=== PATIENT | female | born 1995 | race Caucasian/White ===

== ENCOUNTER 2018-05-04 15:00 | Day surgery (SDC) | payer OTHER ==
[~2018-05-04] VITALS: Ht 175.3 cm; Wt 82.6 kg
[2018-05-04] MEDS ORDERED: NORMOSOL R SOLN(*) 1000 ML BAG 1,000 ML IV PRN ×2 (15:09→15:10)
[2018-05-04] MEDS ORDERED: LIDOCAINE/SOD BICARB 8.4% SYR ID ONE (15:10)
[2018-05-04] MEDS ORDERED: cefOXitin/DEX(*) 2GM/50ML PREM 50 ML IVPB ONE (15:10)
[2018-05-04] MEDS ORDERED: MIDAZOLAM 2 MG/2 ML VIAL IVP PRN (15:10)
[2018-05-04] MEDS ORDERED: FAMOTIDINE 20 MG TAB PO ONE (15:10)
[2018-05-04] MEDS ORDERED: METOCLOPRAMIDE 10 MG/2 ML SDV ONE (15:26)
[2018-05-04] MEDS ORDERED: PROPOFOL EMUL(*) 10MG/ML 20 ML 20 ML ONE (15:26)
[2018-05-04] MEDS ORDERED: ONDANSETRON 4 MG/2 ML VIAL ONE (15:26)
[2018-05-04] MEDS ORDERED: LIDOCAINE MPF 1% 5 ML VIAL ONE (15:26)
[2018-05-04] MEDS ORDERED: DEXAMETHASONE SOD 4 MG/ML VIAL ONE (15:27)
[2018-05-04] MEDS ORDERED: fentaNYL CITR 100 MCG/2 ML AMP ONE (15:27)
[2018-05-04 15:56] VITALS: BP 95/79
[2018-05-04] MEDS ORDERED: ROCURONIUM BROM 10 MG/ML 10 ML ONE (17:25)
[2018-05-04] MEDS ORDERED: BUPIV/EPI 0.25% 1:200,000 50ML INFIL ONE (17:27)
[2018-05-04] MEDS ORDERED: SUGAMMADEX SOD 200 MG/2 ML SDV ONE (18:22)
[2018-05-04] MEDS ORDERED: KETOROLAC 30 MG/ML VIAL ONE (18:26)
[2018-05-04] MEDS ORDERED: SENN8.6T35 PO (18:51)
[2018-05-04] MEDS ORDERED: DOCU-416 PO (18:51)
[2018-05-04] MEDS ORDERED: HYDR-385 PO (18:51)
--- NOTE | 2018-05-04 18:54 | Short(Outpt) Discharge Summary ---
Discharge Summary Departure Discharge to: Home, Self Care Discharge Instructions Home Meds Active Scripts Sennosides (SENNA) 8.6 Mg Tablet, 8.6 MG PO BID for con for 7 Days, #14 TAB Prov:LINETTE PINEDA MD 05/04/18 Docusate Sodium (COLACE) 100 Mg Capsule, 100 MG PO BID PRN for CONSTIPATION for 7 Days, #14 CAPSULE Prov:LINETTE PINEDA MD 05/04/18 Hydrocodone Bit/Acetaminophen (HYDROCODON-ACETAMINOPHEN 5-325) 1 Each Tablet, 1 EACH PO Q6H PRN for PAIN for 5 Days, #20 TAB Prov:LINETTE PINEDA MD 05/04/18 Diet: Regular Activity: As Tolerated, No Heavy Lifting Special Instructions: You may shower on 05/05/18, please do not submerge in water. Please do not scrub incision and pat incisions dry. Please call the office for fever >100.1F more than 24 hours after your operation, for new or spreading redness or increasing pain. Please to not lift >20 lbs for 4 weeks from the date of your operation. LINETTE PINEDA MD May 04, 2018 18:54
--- NOTE | 2018-05-04 18:59 | Post Operative Note ---
Operative Note - ENT Physicians Surgeon: Linette Pineda M.D. Anesthesia: General endotracheal Diagnosis Pre-Op Diagnosis: Acute appendicitis with localized peritonitis Post-Op Diagnosis: Acute uncomplicated appendicitis Procedure Findings: Appendix with injection and dilation. No evidence of mural necrosis, perforation or purulent discharge. Procedure(s): Laparoscopic appendectomy Description of procedure: After obtaining informed consent, the patient was brought to the operating suite and laid in a supine position on the table. Appropriate lines and monitors were placed. The patient was secured to the operating room table with attention paid to adequate padding of bony prominences. Preoperative antibiotics were administered. The patient was then smoothly induced with a general anesthetic and intubated via an orotracheal route. The abdomen was then prepped and draped in the usual sterile fashion. Prior to the formal start of the procedure a preoperative pause was conducted in which the patient's identity was confirmed with two separate identifiers, the planned procedure, safety measures and preoperative antibiotics were discussed. The operation was then begun by making a curvilinear incision in the infraumbilical space. The incision was deepened into the subcutaneous tissues sharply. The subcutaneous tissues were bluntly dissected down to the anterior fascia. This was then sharply incised and the peritoneum was entered under direct vision using Casie technique. Interrupted 0 Vicryl sutures were placed in the incision and a 12 mm trocar was inserted. The abdomen was then insufflated to a steady pressure of 15 mmHg and a laparoscope was introduced. The abdomen was inspected with the findings noted above. Additional 5mm trocars were then placed under direct vision in a suprapubic and left lower quadrant location. The patient was placed head down, the bowel was swept cephalad and the appendix was elevated off the surrounding small bowel. A window in the base of the mesoappendix was created bluntly. An EndoGIA stapler was then introduced into the abdomen and the appendix was amputated off of the cecum with a minimal stump with a single firing using a blue load. The mesoappendix was then tented upward and divided with an additional firing of the EndoGIA with a white load. The appendix was then placed in a retrieval pouch and removed via the infraumbilical incision. The additional 5mm ports were removed and the pneumoperitoneum was released. The infraumbilical fascial incision was then closed with the previously placed 0 Vicryl sutures. The subcutaneous tissues were approximated with a 3-0 Vicryl in a deep horizontal mattress suture. The skin at all incision sites was infiltrated with 0.25% bupivacaine. The skin incisions were closed with 4-0 Monocryl in a running subcuticular fasion and dressed with Dermabond dressing. The patient was then awakened from his general anesthetic, extubated and taken to the post-ansethesia care unit in stable condition. Specimen Removed:(Maybe N/A): Appendix Complications: None Fluids Fluids: 1200 mL Estimated Blood Loss: Minimal LINETTE PINEDA MD May 04, 2018 18:58
[2018-05-04] MEDS ORDERED: APAP/HYDROCODONE 325/5 TAB ONE (19:27)
[2018-05-04 19:31] VITALS: BP 109/77
[2018-05-04 19:45] VITALS: BP 107/69
[2018-05-04 20:00] VITALS: BP 95/68
[2018-05-04 20:03] VITALS: BP 100/65
== END 2018-05-04 19:30 | disposition home or self-care (01) ==
LOC: OR 15:00
PROVIDERS: ATTEND Surgery Surgical Critical Care
DX: K35.80 Unspecified acute appendicitis (principal)
CPT/HCPCS: 44970; J0694; J1100; J1885; J2001; J2405; J2704; J2765; J3010; 88304

== ENCOUNTER → 2018-05-04 | Outpatient (CLI) | payer OTHER ==
[~2018-05-04] MED LIST: DOCU-416 PO; HYDR-385 PO; IOPAMIDOL 76% 75 ML INFUS BTL 75 ML ONE; SENN8.6T35 PO
--- NOTE | 2018-05-04 14:34 | RADIOLOGY IMAGING REPORT ---
FACILITY: [facility] PATIENT NAME: Shawna Rubio : 1995 MR: [id number] V: [id number] EXAM DATE: ORDERING PHYSICIAN: JODIE MENESES TECHNOLOGIST: Location: Patient: Shawna Rubio : 1995 Visit/Account:[id number] Date of Sevice: 05/04/2018 EXAMINATION: CT abdomen with IV contrast CT pelvis with IV contrast HISTORY: Suprapubic/abdominal pain. History of polycystic ovaries. COMPARISON: None. TECHNIQUE: Axial images were taken through the abdomen and pelvis with intravenous contrast. Sagitt al and coronal reformatted images are also submitted. CONTRAST: 75 mL of IV Isovue-370 One of the following dose optimization techniques was utilized in the performance of this exam: Autom ated exposure control; adjustment of the mA and/or kV according to the patient's size; or use of an i terative reconstruction technique. Specific details can be referenced in the facility's radiology C T exam operational policy. FINDINGS: Liver/biliary: Negative. Pancreas: Negative. Spleen: Negative. Adrenal glands: Negative. Kidneys: Negative. Pelvic structures: There are several follicles in both ovaries, the largest in the right ovary luis suring 1.6 cm. Bowel: There are 2 appendicoliths in the appendix, one in the tip of the appendix and the other in th e mid appendix. The appendix is dilated, measuring 9 mm in diameter. Peritoneum/retroperitoneum/mesenteries: Small volume of free fluid in the pelvis. No intraperitoneal free air. There is slight haziness in the periappendiceal fat. Vessels: Negative. Musculoskeletal/body wall: Negative. Lymph node assessment: Negative. Lower chest: Negative. IMPRESSION: Findings of appendicitis with mildly dilated appendix measuring 9 mm in diameter, slight inflammatory changes in the periappendiceal fat, and 2 appendicoliths in the appendix. There is also mild free fl uid in the pelvis. Several follicles in both ovaries, compatible with given history of polycystic ovaries. These findings of appendicitis were discussed with Dr. Lin at 05/04/2018 2:29 PM. Report Dictated By: Sravan Barreto MD at 05/04/2018 2:16 PM Report E-Signed By: Sravan Barreto MD at 05/04/2018 2:30 PM WSN:[id number]
== END ==
LOC: CT 13:31
PROVIDERS: ATTEND Nurse Practitioner Family
DX: K35.80 Unspecified acute appendicitis (principal)
CPT/HCPCS: 74177; Q9967

== ENCOUNTER → 2018-05-04 | Outpatient (REF) | payer OTHER ==
[~2018-05-04] MED LIST changes: -IOPAMIDOL 76% 75 ML INFUS BTL 75 ML ONE
[2018-05-04 13:43] LABS: PLATELET COUNT, AUTOMATED 231 K/uL (150-450)
== END ==
PROVIDERS: ATTEND Nurse Practitioner Family
DX: R10.2 Pelvic and perineal pain (principal); R10.9 Unspecified abdominal pain
CPT/HCPCS: 82040; 82247; 82310; 82374; 82435; 82565; 82947; 84075; 84132; 84155; 84295; 84450; 84460; 84520; 84703; 85025

== ENCOUNTER 2018-05-23 16:09 | Inpatient (IN) | payer OTHER ==
[~2018-05-23] VITALS: Ht 177.8 cm; Wt 84.4 kg
--- NOTE | 2018-05-23 16:12 | ER Report ---
History and Physical Time Seen By MD: 16:11 HPI/ROS CHIEF COMPLAINT: EPIGASTRIC PAIN/NAUSEA HISTORY OF PRESENT ILLNESS: Pt started today with epigastric pain that is constant with episodes of cramping. + nausea. no vomiting. normal bm. no fevers. no cough. Pt concerned because had her appendix removed 05/04 here. Pt denies dysuria. Took gas ex with no relief. REVIEW OF SYSTEMS: Constitutional: No fever, no chills. Eyes: No discharge. ENT: No sore throat. Cardiovascular: No chest pain, no palpitations. Respiratory: No cough, no shortness of breath. Gastrointestinal: + abdominal pain, + nausea, no vomiting. Genitourinary: No hematuria. Musculoskeletal: No back pain. Skin: No rashes. Neurological: No headache. Allergies: Coded Allergies: constanza (Verified Allergy, Severe, ANAPHYLAXIS , 05/04/18) adhesive tape (Verified Allergy, Mild, WELTS , 05/04/18) Uncoded Allergies: SMOKE (Allergy, Intermediate, SORE THROAT; SLIGHT DIFFICULTY BREATHING , 05/04/18) Home Meds No Active Prescriptions or Reported Meds Past Medical/Surgical History pmhx and pshx: appendectomy Reviewed Nurses Notes: Yes Hx Smoking: No Smoking Status: Never Smoker Exposure to Second Hand Smoke?: No Constitutional Vital Sign - Last 24 Hours 05/23/18 05/23/18 05/23/18 05/23/18 16:16 16:19 16:30 16:39 Temp 98.4 Pulse 76 73 Resp 20 B/P (MAP) 113/66 113/66 (82) 118/69 (85) Pulse Ox 95 100 O2 Delivery Room Air Physical Exam General Appearance: The patient is alert, has no immediate need for airway protection and no signs of toxicity. Eyes: Pupils equal and round no pallor or injection, EOMI ENT: no pharyngeal erythema or exudates, Mucous membranes are moist Respiratory: There are no retractions, lungs are clear to auscultation. Cardiovascular: Regular rate and rhythm. pulses are equal and symmetrical Gastrointestinal: Abdomen is soft and non tender, no masses, bowel sounds normal, no guarding, no rigidity or rebound Neurological: Cranial nerves II-XII grossly intact, no sensory or motor loss Skin: Warm and dry, no rashes. Musculoskeletal: Neck is supple non tender, no vertebral tenderness Extremities are nontender, non swollen and have full range of motion. DIFFERENTIAL DIAGNOSIS: After history and physical exam differential diagnosis was considered for pancreatitis, pud, gastritis, pneumonia, post op infection Medical Decision Making Data Points Result Diagram: 05/23/18 1630 05/23/18 1630 Laboratory Hematology Test 05/23/18 16:30 05/23/18 17:45 Red Blood Count 4.81 M/uL (4.17-5.56) Mean Corpuscular Volume 92.0 fL (80.0-96.0) Mean Corpuscular Hemoglobin 31.5 pg (26.0-33.0) Mean Corpuscular Hemoglobin Concent 34.2 g/dL (32.0-36.0) Red Cell Distribution Width 13.1 % (11.5-14.5) Mean Platelet Volume 7.5 fL (7.2-11.1) Neutrophils (%) (Auto) 63.2 % (39.4-72.5) Lymphocytes (%) (Auto) 27.7 % (17.6-49.6) Monocytes (%) (Auto) 7.2 % (4.1-12.4) Eosinophils (%) (Auto) 1.3 % (0.4-6.7) Basophils (%) (Auto) 0.6 % (0.3-1.4) Nucleated RBC Relative Count (auto) 0.1 /100WBC Neutrophils # (Auto) 5.3 K/uL (2.0-7.4) Lymphocytes # (Auto) 2.3 K/uL (1.3-3.6) Monocytes # (Auto) 0.6 K/uL (0.3-1.0) Eosinophils # (Auto) 0.1 K/uL (0.0-0.5) Basophils # (Auto) 0.1 K/uL (0.0-0.1) Nucleated RBC Absolute Count (auto) 0.01 K/uL Sodium Level 138 mmol/L (137-145) Potassium Level 3.8 mmol/L (3.5-5.0) Chloride Level 105 mmol/L (98-107) Carbon Dioxide Level 23 mmol/L (22-31) Blood Urea Nitrogen 11 mg/dl (7-18) Creatinine 0.60 mg/dl (0.52-1.04) Glomerular Filtration Rate Calc > 60.0 Random Glucose 101 mg/dl (75-110) Calcium Level 9.5 mg/dl (8.4-10.2) Total Bilirubin 0.6 mg/dl (0.2-1.3) Aspartate Amino Transf (AST/SGOT) 26 U/L (0-35) Alanine Aminotransferase (ALT/SGPT) 42 U/L (0-56) Alkaline Phosphatase 69 U/L (0-126) Total Protein 7.7 g/dl (6.3-8.2) Albumin 4.4 g/dl (3.5-5.0) Amylase Level 71 U/L (0-110) Lipase 71 U/L (23-300) Human Chorionic Gonadotropin, Qual Negative (NEGATIVE) Helicobacter pylori IgG Antibody Positive (NEGATIVE) Urine Color Yellow Urine Clarity Clear Urine pH 5.0 pH (4.8-9.5) Urine Specific [place] 1.053 Urine Protein Negative mg/dL (NEGATIVE) Urine Glucose (UA) Negative mg/dL (NEGATIVE) Urine Ketones 20 mg/dL (NEGATIVE) Urine Blood Negative (NEGATIVE) Urine Nitrite Negative (NEGATIVE) Urine Bilirubin Negative (NEGATIVE) Urine Urobilinogen Negative mg/dL (0.2-1.9) Urine Leukocyte Esterase Negative (NEGATIVE) Urine RBC 1 /HPF (0-2/HPF) Urine WBC None /HPF (0-5/HPF) Urine Squamous Epithelial Cells Few /LPF (</=FEW) Urine Bacteria Negative /HPF (NONE-FEW) Urine Mucus None /HPF (NONE-FEW) Chemistry Test 05/23/18 16:30 05/23/18 17:45 White Blood Count 8.3 k/uL (4.5-11.0) Red Blood Count 4.81 M/uL (4.17-5.56) Hemoglobin 15.2 g/dL (12.0-16.0) Hematocrit 44.3 % (34.0-47.0) Mean Corpuscular Volume 92.0 fL (80.0-96.0) Mean Corpuscular Hemoglobin 31.5 pg (26.0-33.0) Mean Corpuscular Hemoglobin Concent 34.2 g/dL (32.0-36.0) Red Cell Distribution Width 13.1 % (11.5-14.5) Platelet Count 303 K/uL (150-450) Mean Platelet Volume 7.5 fL (7.2-11.1) Neutrophils (%) (Auto) 63.2 % (39.4-72.5) Lymphocytes (%) (Auto) 27.7 % (17.6-49.6) Monocytes (%) (Auto) 7.2 % (4.1-12.4) Eosinophils (%) (Auto) 1.3 % (0.4-6.7) Basophils (%) (Auto) 0.6 % (0.3-1.4) Nucleated RBC Relative Count (auto) 0.1 /100WBC Neutrophils # (Auto) 5.3 K/uL (2.0-7.4) Lymphocytes # (Auto) 2.3 K/uL (1.3-3.6) Monocytes # (Auto) 0.6 K/uL (0.3-1.0) Eosinophils # (Auto) 0.1 K/uL (0.0-0.5) Basophils # (Auto) 0.1 K/uL (0.0-0.1) Nucleated RBC Absolute Count (auto) 0.01 K/uL Glomerular Filtration Rate Calc > 60.0 Calcium Level 9.5 mg/dl (8.4-10.2) Total Bilirubin 0.6 mg/dl (0.2-1.3) Aspartate Amino Transf (AST/SGOT) 26 U/L (0-35) Alanine Aminotransferase (ALT/SGPT) 42 U/L (0-56) Alkaline Phosphatase 69 U/L (0-126) Total Protein 7.7 g/dl (6.3-8.2) Albumin 4.4 g/dl (3.5-5.0) Amylase Level 71 U/L (0-110) Lipase 71 U/L (23-300) Human Chorionic Gonadotropin, Qual Negative (NEGATIVE) Helicobacter pylori IgG Antibody Positive (NEGATIVE) Urine Color Yellow Urine Clarity Clear Urine pH 5.0 pH (4.8-9.5) Urine Specific [place] 1.053 Urine Protein Negative mg/dL (NEGATIVE) Urine Glucose (UA) Negative mg/dL (NEGATIVE) Urine Ketones 20 mg/dL (NEGATIVE) Urine Blood Negative (NEGATIVE) Urine Nitrite Negative (NEGATIVE) Urine Bilirubin Negative (NEGATIVE) Urine Urobilinogen Negative mg/dL (0.2-1.9) Urine Leukocyte Esterase Negative (NEGATIVE) Urine RBC 1 /HPF (0-2/HPF) Urine WBC None /HPF (0-5/HPF) Urine Squamous Epithelial Cells Few /LPF (</=FEW) Urine Bacteria Negative /HPF (NONE-FEW) Urine Mucus None /HPF (NONE-FEW) Urinalysis Test 05/23/18 17:45 Urine Color Yellow Urine Clarity Clear Urine pH 5.0 pH (4.8-9.5) Urine Specific [place] 1.053 Urine Protein Negative mg/dL (NEGATIVE) Urine Glucose (UA) Negative mg/dL (NEGATIVE) Urine Ketones 20 mg/dL (NEGATIVE) Urine Blood Negative (NEGATIVE) Urine Nitrite Negative (NEGATIVE) Urine Bilirubin Negative (NEGATIVE) Urine Urobilinogen Negative mg/dL (0.2-1.9) Urine Leukocyte Esterase Negative (NEGATIVE) Urine RBC 1 /HPF (0-2/HPF) Urine WBC None /HPF (0-5/HPF) Urine Squamous Epithelial Cells Few /LPF (</=FEW) Urine Bacteria Negative /HPF (NONE-FEW) Urine Mucus None /HPF (NONE-FEW) ED Course/Re-evaluation Clinical Indication for ER IV: IV Access ED Course Check labs, CT, and give meds for nausea and cramping 05/23/2018 5:59:[address] is suspicious for psbo/sbo forming at RLQ. PT still feeling nauseated but no vomiting. Still with abd cramping. Spoke with Dr. christy who will admit pt. Keep her NPO and would like NGT placed. PT made aware will require ng tube. PT also made aware she was positive for H Pylori which they will treat after the sbo. Decision to Disposition Date: May 23, 2018 Decision to Disposition Time: 18:01 Depart Departure Latest Vital Signs Vital Signs Date Time Temp Pulse Resp B/P (MAP) Pulse Ox O2 Delivery O2 Flow Rate FiO2 05/23/18 16:39 73 100 05/23/18 16:30 118/69 (85) 05/23/18 16:16 98.4 20 Room Air Impression: Primary Impression: H. pylori infection Additional Impression: SBO (small bowel obstruction) Condition: Condition Unchanged Disposition: Admitted from ER New Scripts No Active Prescriptions or Reported Meds Problem Qualifiers CYRUS RUBIO DO May 23, 2018 16:12
[2018-05-23] MEDS ORDERED: ONDANSETRON 4 MG/2 ML VIAL IVP ONE (16:25)
[2018-05-23] MEDS ORDERED: DICYCLOMINE HCL 10 MG CAP PO ONE (16:25)
[2018-05-23] MEDS ORDERED: FAMOTIDINE(*) 20MG/50ML PREMIX 50 ML IVPB ONE (16:25)
[2018-05-23] MEDS ORDERED: IOPAMIDOL 76% 50 ML INFUS BTL 100 ML ONE (16:47)
[2018-05-23 16:50] LABS: PLATELET COUNT, AUTOMATED 303 K/uL (150-450)
[2018-05-23] MEDS ORDERED: METOCLOPRAMIDE 10 MG/2 ML SDV IVP ONE (17:45)
[2018-05-23] MEDS ORDERED: NS(*) 0.9% 1000 ML BAG 1,000 ML IV ONE (17:50)
--- NOTE | 2018-05-23 17:53 | RADIOLOGY IMAGING REPORT ---
FACILITY: [facility] PATIENT NAME: Shawna Rubio : 1995 MR: [id number] V: [id number] EXAM DATE: [id number] ORDERING PHYSICIAN: CYRUS RUBIO TECHNOLOGIST: Location: [facility] - [place] Patient: Shawna Rubio : 1995 Visit/Account:[id number] Date of Sevice: 05/23/2018 EXAMINATION: CT abdomen and pelvis with IV contrast HISTORY: Upper abdominal pain. Postop appendectomy 2 weeks ago. TECHNIQUE: Axial CT images of the abdomen and pelvis were obtained with IV contrast, with coronal a nd sagittal 2D reconstructed images. One of the following dose optimization techniques was utilized in the performance of this exam: Autom ated exposure control; adjustment of the mA and/or kV according to the patient's size; or use of an i terative reconstruction technique. Specific details can be referenced in the facility's radiology C T exam operational policy. Contrast: 85 mL of IV Isovue-370. COMPARISON: 05/04/2018. FINDINGS: Liver: Negative. Gallbladder and bile ducts: Negative. Spleen: Negative. Pancreas: Negative. Adrenal glands: Negative. Kidneys: Negative. No hydronephrosis or urinary calculi. Bowel and peritoneum: Patient has undergone surgical appendectomy since the prior exam. No discrete fluid collection or abscess in the right lower abdomen. There is dilatation of several fluid-filled distal small bowel loops in the right lower abdomen and p maia adjacent to the appendectomy staple line. There is distortion and tethering of these small bow el segments as they meet centrally along the mesentery adjacent to the staple line, with mild mesente federica edema. The terminal ileum is decompressed. CT appearance is suspicious for developing small bow el obstruction which may relate to the adjacent surgery, including possibly a closed loop obstruction . Proximal small bowel loops are relatively decompressed. No free fluid or free intraperitoneal air . Pelvic structures: The right ovary contains a 2.3 cm dominant follicle. Lymph node assessment: Negative. Vessels: Negative. Musculoskeletal: Negative. Body wall: Negative. Lung bases: Negative. IMPRESSION: 1. Surgical changes in the right lower abdomen related to recent appendectomy. 2. There is a small cluster of dilated distal small bowel loops in the right lower quadrant adjacent to the appendectomy staple line, with distortion and tethering centrally of these bowel segments tate ng the mesentery and some associated mesenteric edema. Appearance is suspicious for developing small bowel obstruction including possibly a closed loop obstruction which could relate to a mesenteric de fect near the appendectomy staple line. 3. No abdominal fluid collection or abscess. 4. No other acute intra-abdominal findings. Findings were discussed with CYRUS RUBIO at 05/23/2018 5:47 PM. Report Dictated By: Ian More MD at 05/23/2018 5:27 PM Report E-Signed By: Ian More MD at 05/23/2018 5:49 PM WSN:[id number]
[2018-05-23] MEDS ORDERED: fentaNYL CITR 100 MCG/2 ML AMP IVP ONE (19:05)
--- NOTE | 2018-05-23 19:06 | RADIOLOGY IMAGING REPORT ---
FACILITY: [facility] PATIENT NAME: Shawna Rubio : 1995 MR: [id number] V: [id number] EXAM DATE: ORDERING PHYSICIAN: CYRUS RUBIO TECHNOLOGIST: Location: [facility] - [place] Patient: Shawna Rubio : 1995 Visit/Account:[id number] Date of Sevice: 05/23/2018 Examination: CHEST SINGLE AP Comparison: CT abdomen and pelvis same day. History: Nausea and vomiting. Findings: Clear lungs. No consolidation, nodule, or peribronchial inflammation. No pneumothorax, maverick a, or effusion. Cardiac and hilar contour size is normal. Osseous structures are intact. An enteric tube is present with the tube tip just distal to the expected location of the gastroesopha geal junction; the side-port is within the distal esophagus. IMPRESSION: 1. No evidence of acute cardiopulmonary disease. 2. Enteric tube position as described above. Report Dictated By: Robby Woodruff MD at 05/23/2018 7:00 PM Report E-Signed By: Robby Woodruff MD at 05/23/2018 7:02 PM WSN:[id number]
[2018-05-23] MEDS ORDERED: BENZOCAINE/MENTHOL 1 EACH LOZG PO PRN (19:30)
[2018-05-23] MEDS ORDERED: FLUSH 10 ML SYR IVP PRN (19:30)
[2018-05-23 19:47] VITALS: BP 124/83
--- NOTE | 2018-05-23 20:00 | Gen Surgery History & Physical ---
History of Present Illness Chief Complaint Abdominal pain History of Present Illness 22yo female, 2 1/2 weeks s/p uncomplicated lap appy. Was recovering without any issues until earlier today at about noon when she started experiencing incre asing abdominal pain and nausea. She's thrown up twice today. Last flatus was 5 hours ago. Normal BM this morning. No recent constipation or diarrhea. No other h/o abdominal surgery other than the recent lap appy. She was seen in Dr. Lorenzana's office for surgical f/u 4 days ago and was noted to be recovering without issues at that time, mild postop abdominal pain but no other complaints. She came into the ER where she was found to be positive for H. pylori and CT c/w early SBO. I have been asked and have agreed to admit and manage this patient. History Home Meds No Active Prescriptions or Reported Meds Allergies: Coded Allergies: constanza (Verified Allergy, Severe, ANAPHYLAXIS , 05/04/18) adhesive tape (Verified Allergy, Mild, WELTS , 05/04/18) Uncoded Allergies: SMOKE (Allergy, Intermediate, SORE THROAT; SLIGHT DIFFICULTY BREATHING , 05/04/18) Patient History: FH: diverticulitis MOTHER FH: hyperthyroidism MOTHER High blood pressure FATHER Review of Systems All Systems Reviewed/Normal: Yes, Except as Noted Gastrointestinal: Nausea, Abdominal Pain Exam General Appearance: Alert, Awake, No Acute Distress, Afebrile Neuro: No Gross deficits Eyes: PERRLA GI: Other (Soft, diffuse mild TTP, incisions look good without erythema or drainage.) Extremities: Warm, Perfused Psych: Alert & Oriented X3, Appropriate Mood & Affect Medical Decision Making Data Points Result Diagram: 05/23/18 1630 05/23/18 1630 Assessment and Plan Problems: (1) SBO (small bowel obstruction) Status: Acute Assessment & Plan: 05/23/18: POD#19 s/p lap appy now with SBO. Will admit, start with conservative management including bowel rest and NG tube decompression. She reports that her abdominal pain and nausea has resolved since placement of the NG tube. If she fails to respond to conservative management over the next 48 hours will likely get a gastrograffin SBFT. May r equire surgical exploration if she fails to respond to conservative management and doesn't open up with SBFT. Plan explained to the patient and she seems to understand and she seems agreeable with this plan. (2) H. pylori infection Status: Acute Assessment & Plan: This may be incidental finding. She has had no epigastric abdominal pain, dyspepsia, no h/o ulcers, etc. Will hold off on treatment for now since this is asymptomatic. Condition Stable. Time Spent: < 30 min Venous Thromboembolism VTE Risk Physician Assess for VTE Risk: Yes Patient's VTE Risk: Low VTE Diagnostic Test 2 Days Prior to Admit: No Antithrombotics Is Pt On Any Antithrombotics?: No JODIE MCKEON MD May 23, 2018 19:38
[2018-05-23] MEDS: NS(*) 0.9% 1000 ML BAG 1,000 ML IV PRN (20:08)
[2018-05-23] MEDS: ACETAMINOPHEN(*)1000 MG/100 ML 100 ML IVPB PRN (22:42)
[2018-05-23 22:45] VITALS: BP 125/82
[2018-05-24 02:00] VITALS: BP 122/77
[2018-05-24] MEDS: MORPHINE 2 MG/ML SYR IVP PRN (02:01)
[2018-05-24] MEDS: NS(*) 0.9% 1000 ML BAG 1,000 ML IV PRN ×3 (04:25→20:07)
[2018-05-24 05:42] LABS: PLATELET COUNT, AUTOMATED 261 K/uL (150-450)
[2018-05-24 08:37] VITALS: BP 121/86
[2018-05-24] MEDS: ENOXAPARIN 40 MG/0.4ML SYR SC SCH (08:39)
[2018-05-24] MEDS: ACETAMINOPHEN(*)1000 MG/100 ML 100 ML IVPB PRN ×3 (08:39→23:14)
[2018-05-24] MEDS ORDERED: PANTOPRAZOLE SOD 40 MG IV VIAL IVP SCH (09:00)
--- NOTE | 2018-05-24 10:33 | General Surgery Progress Note ---
Subjective Progress Notes Subjective No flatus or BM yet. No abdominal pain or N/V. Physical Exam Vital Signs Date Time Temp Pulse Resp B/P (MAP) Pulse Ox O2 Delivery O2 Flow Rate FiO2 05/24/18 08:37 99.1 89 121/86 (98) 94 Room Air 05/24/18 02:00 18 Intake and Output 05/24/18 07:00 Intake Total 2350 ml Output Total 900 ml Balance 1450 ml Intake Oral 200 ml IV Total 2150 ml Output Gastric Drainage Total 900 ml # Voids 3 General Appearance: Alert, Awake, No Acute Distress, Afebrile GI: Soft and Non-Tender Extremities: Warm, Perfused Result Diagram: 05/24/18 0505/24/18 05 Assessment and Plan Problems: (1) SBO (small bowel obstruction) Status: Acute Assessment & Plan: 05/23/18: POD#19 s/p lap appy now with SBO. Will admit, start with conservative management including bowel rest and NG tube decompression. She reports that her abdominal pain and nausea has resolved sin ce placement of the NG tube. If she fails to respond to conservative management over the next 48 hours will likely get a gastrograffin SBFT. May require surgical exploration if she fails to respond to conservative management and doesn't open up with SBFT. Plan explained to the patient and she seems to understand and she seems agreeable with this plan. 05/24/18: Doing well but still with SBO. Will continue conservative management with NG tube decompression/bowel rest today. If not resolved by tomorrow morning will order water-soluble SBFT. Plan explained to the patient and her parents and they seem agreeable with this plan. (2) H. pylori infection Status: Acute Assessment & Plan: This may be incidental finding. She has had no epigastric abdominal pain, dyspepsia, no h/o ulcers, etc. Will hold off on treatment for now since this is asymptomatic. Condition Stable. Time Spent: < 30 min Exam Sepsis Risk: No Definite Risk JODIE MCKEON MD May 24, 2018 10:33
[2018-05-24 12:30] VITALS: Ht 177.8 cm; Wt 84.4 kg
--- NOTE | 2018-05-24 12:39 | Medical Nutrition Therapy ---
Nutrition Anthropometrics Height (Inches): 70.00 Height (Calculated Centimeters: 177.822622 Weight (Pounds): 186 Weight (Calculated Kilograms): 84.368 Mehrdad Nutrition Score: Adequate Mehrdad Nutrition Risk Score: 22 Dietary Referral Nutrition Risk Factors: Nutrition Risk Comment: Physical Findings Physical Appearance: Overweight BMI 25-29 Skin Appearance Skin Appearance: Edema Edema Location Modifier: Edema Location: Type of Edema: Degree of Edema: Gastrointestinal Symptoms GI Symtoms: Tube Present: NG Bowel Sounds: Recent Bowel Pattern: Stool Characteristics: Nutritional Diagnosis Nutritional Risk Acuity 1: GI Obstruction Nutritional Risk Acuity 3: Nausea Past Medical History: s/p lap appy Nutritional Acuity: 1-High Nutrition Diagnosis: Altered GI Function Nutrition Etiology: Physiological Causes Nutrition Problem/Etiology/Sym: Altered GI function related to physiological causes as evidenced by abdominal pain, nausea and SBO. Energy Requirement: 2020 ([id number] (HB x 1.2-1.3)) Protein Requirement: 84 Fluid Requirement: 2100 (25 ml/kg) Diet Type: NPO/Ice Chips Only Nutrition Intervention: Incr diet as tolerated Nutrition Monitoring & Eval RD Patient Assessment Time: [address] Assessment Type: RD Assessment Patient Nutrition Acuity: 1-High Follow Up Date: May 26, 2018 Nutritional Comment: 05/24 Pt admitted with abdominal pain and nausea and was found to have SBO. She recently had a lap appy and was recovering well until this episode. Currently trying conservative management with bowel rest. NPO day 2. No flatus or BM today. Only noting one abnormal nutr related lab, creatinine .5. Will monitor clinical progression. -JAYANT SONG May 24, 2018 12:39
[2018-05-24 15:10] VITALS: BP 125/80
[2018-05-24 18:41] VITALS: BP 121/86
[2018-05-24] MEDS: ONDANSETRON 4 MG/2 ML VIAL IVP PRN (20:28)
[2018-05-24 23:10] VITALS: BP 116/72
[2018-05-25 03:06] VITALS: BP 129/92
[2018-05-25] MEDS: NS(*) 0.9% 1000 ML BAG 1,000 ML IV PRN ×2 (03:17→12:38)
[2018-05-25 06:54] VITALS: BP 119/71
--- NOTE | 2018-05-25 07:29 | General Surgery Progress Note ---
Subjective Progress Notes Subjective Main complaints are related to the NG tube. No abdominal pain, N/V. She reports that she's passing flatus, no BM yet. Physical Exam Vital Signs Date Time Temp Pulse Resp B/P (MAP) Pulse Ox O2 Delivery O2 Flow Rate FiO2 05/25/18 06:54 99.2 102 16 119/71 (87) 90 Room Air Intake and Output 05/25/18 07:00 Intake Total 3258 ml Output Total 1950 ml Balance 1308 ml IV Total 3198 ml Tube Irrigant 60 ml Output Gastric Drainage Total 1950 ml # Voids 5 General Appearance: Alert, Awake, No Acute Distress, Afebrile GI: Soft and Non-Tender (Umbilical incision is improving with less redness and no drainage, dry scap on incision) Extremities: Warm, Perfused Result Diagram: 05/24/18 0512 05/24/18 0512 Assessment and Plan Problems: (1) SBO (small bowel obstruction) Status: Acute Assessment & Plan: 05/23/18: POD#19 s/p lap appy now with SBO. Will admit, start with conservative management including bowel rest and NG tube decompression. She reports that her abdominal pain and nausea has resolved since placement of the NG tube. If she fails to respond to conservative management over the next 48 hours will likely get a gastrograffin SBFT. May require surgical exploration if she fails to respond to conservative management and doesn't open up with SBFT. Plan explained to the patient and she seems to understand and she seems agreeable with this plan. 05/24/18: Doing well but still with SBO. Will continue conservative management with NG tube decompression/bowel rest today. If not resolved by tomorrow morning will order water-soluble SBFT. Plan explained to the patient and her parents and they seem agreeable with this plan. 05/25/18: Doing well with mixed signals, now passing flatus but NG tube output significantly increased, she put out almost 2L in last 24 hours. Will get water-soluble SBFT today. She is agreeable with this plan. (2) H. pylori infection Status: Acute Assessment & Plan: This may be incidental finding. She has had no epigastric abdominal pain, dyspepsia, no h/o ulcers, etc. Will hold off on treatment for now since this is asymptomatic. 05/25/18: She has had blood in the NG tube output. This could be a sign of NG tube trauma vs gastritis. The blood is a little more than is usually seen with routine NG tube use. Will start H.pylori triple rx when starting diet. Will increase PPI to bid. Condition Stable. Time Spent: < 30 min Exam Sepsis Risk: No Definite Risk JODIE MCKEON MD May 25, 2018 07:29
[2018-05-25] MEDS: ACETAMINOPHEN(*)1000 MG/100 ML 100 ML IVPB PRN ×2 (07:43→16:47)
[2018-05-25] MEDS ORDERED: DIATRIZOATE MEGL/DIATRIZOA SOD 120 ML SOLN PO ONE (09:13)
[2018-05-25] MEDS: PANTOPRAZOLE SOD 40 MG IV VIAL IVP SCH ×2 (09:30→21:12)
[2018-05-25] MEDS: ENOXAPARIN 40 MG/0.4ML SYR SC SCH (09:30)
[2018-05-25] MEDS: ONDANSETRON 4 MG/2 ML VIAL IVP PRN (11:05)
[2018-05-25] MEDS: MORPHINE 2 MG/ML SYR IVP PRN ×2 (11:06→11:14)
[2018-05-25 11:08] VITALS: BP 116/79
[2018-05-25] MEDS ORDERED: NS(*) 0.9% 1000 ML BAG 1,000 ML IV PRN (12:55)
[2018-05-25 15:43] VITALS: BP 103/65
--- NOTE | 2018-05-25 17:02 | RADIOLOGY IMAGING REPORT ---
FACILITY: [facility] - [place] PATIENT NAME: Shawna Rubio : 1995 MR: [id number] V: [id number] EXAM DATE: [id number] ORDERING PHYSICIAN: JODIE MCKEON TECHNOLOGIST: Location: [facility] [place] Patient: Shawna Rubio : 1995 Visit/Account:[id number] Date of Sevice: 05/25/2018 Exam type: SMALL BOWEL SERIES History: SBO, water soluble contrast only please Comparison: CT of abdomen pelvis May 23, 2018. Findings: The patient received 160 mL of dilute Gastrografin suspension through her NG tube. On the 15 minute image Gastrografin had passed freely through the jejunum and was present in multiple small bowel loop s within the pelvis. By the 45 minute image the contrast had entered the colon was actually present in the left-sided colon. No dilated bowel loops were identified. No extrinsic mass effect was seen. Fluoroscopy was not performed IMPRESSION: 1. No evidence of small bowel obstruction or ileus at this time. Gastrografin entered the left-side d colon within 45 minutes Report Dictated By: Corinna Duarte MD at 05/25/2018 4:57 PM Report E-Signed By: Corinna Duarte MD at 05/25/2018 4:59 PM WSN:FLORENTIN
[2018-05-25 19:37] VITALS: BP 108/83
[2018-05-26 03:06] VITALS: BP 100/63
[2018-05-26 05:52] LABS: PLATELET COUNT, AUTOMATED 209 K/uL (150-450)
--- NOTE | 2018-05-26 07:54 | General Surgery Progress Note ---
Subjective Progress Notes Subjective No complaints this morning. Passing lots of flatus and stool. No abdominal pain. No N/V, tolerating clear diet. Physical Exam Vital Signs Date Time Temp Pulse Resp B/P (MAP) Pulse Ox O2 Delivery O2 Flow Rate FiO2 05/26/18 03:06 99.1 78 16 100/63 (75) 91 Room Air Intake and Output 05/26/18 06:59 Intake Total 2929 ml Output Total 1000 ml Balance 1929 ml Intake Oral 1750 ml IV Total 1179 ml Output Gastric Drainage Total 1000 ml # Voids 5 # Bowel Movements 10 General Appearance: Alert, Awake, No Acute Distress, Afebrile GI: Soft and Non-Tender Extremities: Warm, Perfused Result Diagram: 05/26/18 0536 05/26/18 0536 Assessment and Plan Problems: (1) SBO (small bowel obstruction) Status: Acute Assessment & Plan: 05/23/18: POD#19 s/p lap appy now with SBO. Will admit, start with conservative management including bowel rest and NG tube decompressi on. She reports that her abdominal pain and nausea has resolved since placement of the NG tube. If she fails to respond to conservative management over the next 48 hours will likely get a gastrograffin SBFT. May require surgical exploration if she fails to respond to conservative management and doesn't open up with SBFT. Plan explained to the patient and she seems to understand and she seems agreeable with this plan. 05/24/18: Doing well but still with SBO. Will continue conservative management with NG tube decompression/bowel rest today. If not resolved by tomorrow morning will order water-soluble SBFT. Plan explained to the patient and her parents and they seem agreeable with this plan. 05/25/18: Doing well with mixed signals, now passing flatus but NG tube output significantly increased, she put out almost 2L in last 24 hours. Will get water-soluble SBFT today. She is agreeable with this plan. 05/26/18: SBO resolved. SBFT unremarkable yesterday. Tolerating clear diet. Will try regular diet today. Will start triple rx for H.pylori today. If she does well with this then will plan on d/c this evening. (2) H. pylori infection Status: Acute Assessment & Plan: This may be incidental finding. She has had no epigastric abdominal pain, dyspepsia, no h/o ulcers, etc. Will hold off on treatment for now since this is asymptomatic. 05/25/18: She has had blood in the NG tube output. This could be a sign of NG tube trauma vs gastritis. The blood is a little more than is usually seen with routine NG tube use. Will start H.pylori triple rx when starting diet. Will increase PPI to bid. Condition Stable. Time Spent: < 30 min Exam Sepsis Risk: No Definite Risk JODIE MCKEON MD May 26, 2018 07:54
[2018-05-26 08:32] VITALS: BP 115/80
[2018-05-26] MEDS: ENOXAPARIN 40 MG/0.4ML SYR SC SCH (08:57)
[2018-05-26] MEDS ORDERED: PANTOPRAZOLE SOD 40 MG TABEC PO SCH (09:00)
[2018-05-26] MEDS ORDERED: AMOXICILLIN 500 MG CAP PO ONE (09:00)
[2018-05-26] MEDS ORDERED: CLARITHROMYCIN 500 MG TAB PO SCH (09:00)
--- NOTE | 2018-05-26 09:07 | Medical Nutrition Therapy ---
Nutrition Anthropometrics Height (Inches): 70.00 Height (Calculated Centimeters: 177.223192 Weight (Pounds): 186 Weight (Calculated Kilograms): 84.368 Mehrdad Nutrition Score: Adequate Mehrdad Nutrition Risk Score: 21 Dietary Referral Nutrition Risk Factors: Nutrition Risk Comment: Physical Findings Physical Appearance: Overweight BMI 25-29 Skin Appearance Skin Appearance: Edema Edema Location Modifier: Edema Location: Type of Edema: Degree of Edema: Gastrointestinal Symptoms GI Symtoms: Diarrhea, Change in Bowel Pattern Tube Present: NG Bowel Sounds: Recent Bowel Pattern: Stool Characteristics: Nutritional Diagnosis Nutritional Risk Acuity 1: GI Obstruction Nutritional Risk Acuity 3: Nausea Past Medical History: s/p lap appy Nutritional Acuity: 1-High Nutrition Diagnosis: Altered GI Function Nutrition Etiology: Physiological Causes Nutrition Problem/Etiology/Sym: Altered GI function related to physiological causes as evidenced by abdominal pain, nausea and SBO. Energy Requirement: 2020 ([id number] (HB x 1.2-1.3)) Protein Requirement: 84 Fluid Requirement: 2100 (25 ml/kg) Diet Type: Diet as Tolerated [place]/REG Nutrition Intervention: Cont diet as ordered, Encourage intake Nutrition Monitoring & Eval Nutrition Goals: Eat 75-100% Meal RD Patient Assessment Time: [address] Assessment Type: RD Re-Assessment Patient Nutrition Acuity: 1-High Follow Up Date: May 29, 2018 Nutritional Comment: 05/24 Pt admitted with abdominal pain and nausea and was found to have SBO. She recently had a lap appy and was recovering well until this episode. Currently trying conservative management with bowel rest. NPO day 2. No flatus or BM today. Only noting one abnormal nutr related lab, creatinine .5. Will monitor clinical progression. -EK 05/26 SBO resolved. NG removed. Diet advanced to regular this morning. Pt ate 100% of clear liquids last night. Alb 4.4. No new wt. Will cont to monitor and encourage intake. ODALYS MOORE May 26, 2018 09:07
[2018-05-26 11:05] VITALS: BP 137/88
[2018-05-26] MEDS ORDERED: PANT40TA65 PO (15:02)
[2018-05-26] MEDS ORDERED: AMOX-362 PO (15:02)
[2018-05-26] MEDS ORDERED: CLAR-1 PO (15:02)
--- NOTE | 2018-05-26 15:07 | Short(Outpt) Discharge Summary ---
Discharge Summary Reason for Hosp/Final Diag: (1) SBO (small bowel obstruction) Status: Acute Hospital Course & Plan: 05/23/18: POD#19 s/p lap appy now with SBO. Will admit, start with conservative management including bowel rest and NG tube decompression. She reports that her abdominal pain and nausea has resolved since placement of the NG tube. If she fails to respond to conservative management over the next 48 hours will likely get a gastrograffin SBFT. May require surgical exploration if she fails to respond to conservative management and doesn't open up with SBFT. Plan explained to the patient and she seems to understand and she seems agreeable with this plan. 05/24/18: Doing well but still with SBO. Will continue conservative management with NG tube decompression/bowel rest today. If not resolved by tomorrow morning will order water-soluble SBFT. Plan explained to the patient and her parents and they seem agreeable with this plan. 05/25/18: Doing well with mixed signals, now passing flatus but NG tube output significantly increased, she put out almost 2L in last 24 hours. Will get water-soluble SBFT today. She is agreeable with this plan. 05/26/18: SBO resolved. SBFT unremarkable yesterday. Tolerating clear diet. Will try regular diet today. Will start triple rx for H.pylori today. If she does well with this then will plan on d/c this evening. 05/26/18 (afternoon): Doing well. Tolerating regular diet. She wants to go home. Will d/c to home this afternoon. (2) H. pylori infection Status: Acute Hospital Course & Plan: This may be incidental finding. She has had no epigastric abdominal pain, dyspepsia, no h/o ulcers, etc. Will hold off on treatment for now since this is asymptomatic. 05/25/18: She has had blood in the NG tube output. This could be a sign of NG tube trauma vs gastritis. The blood is a little more than is usually seen with routine NG tube use. Will start H.pylori triple rx when starting diet. Will increase PPI to bid. Departure Discharge to: Home, Self Care Discharge Instructions Home Meds Active Scripts Pantoprazole Sodium (PANTOPRAZOLE SODIUM) 40 Mg Tablet.dr, 1 TAB PO BID, #30 TAB 0 Refills Prov:JODIE MCKEON MD 05/26/18 Clarithromycin (CLARITHROMYCIN) 500 Mg Tablet, 1 TAB PO BID, #28 TAB 0 Refills Prov:JODIE MCKEON MD 05/26/18 Amoxicillin (AMOXICILLIN) 500 Mg Capsule, 2 CAP PO BID, #56 CAPSULE 0 Refills Prov:JODIE MCKEON MD 05/26/18 Diet: Regular Activity: As Tolerated Special Instructions: You may eat whatever foods you desire without restrictions but limit how much and how fast you eat for the next couple of days until you're confident that your GI tract is tolerating eating and you're not having recurring symptoms. Come back to the ER if you start developing worsening abdominal pain, bloating, nausea, or vomiting. Take the pantoprazole (1 pill twice each day), amoxicillin (2 pills twice each day), and clarithromycin (1 pill twice each day) for 14 days, until you run out of pills then stop. Nothing further needs to be done unless you are having issues with upper abdominal pain, nausea, vomiting, blood in your vomit which in case we'll need to perform an upper GI endoscopy so please let me know if you develop any upper GI symptoms. JODIE MCKEON MD May 26, 2018 15:07
[2018-05-26 15:14] VITALS: BP 137/88
[2018-05-26] MEDS ORDERED: AMOXICILLIN 500 MG CAP PO SCH (21:00)
== END 2018-05-26 15:53 | disposition home or self-care (01) | DRG 390 ==
LOC: ER 16:13 → MED 18:11
PROVIDERS: ADMIT Surgery; ATTEND Surgery
PROC: 0D9670Z Drainage of Stomach with Drainage Device, Via Natural or Artificial Opening (ICD-10-PCS; principal; 2018-05-23)
DX: K91.30 Postprocedural intestinal obstruction, unspecified as to partial versus complete (principal); B96.81 Helicobacter pylori [H. pylori] as the cause of diseases classified elsewhere; Y83.8 Other surgical procedures as the cause of abnormal reaction of the patient, or of later complication, without mention of misadventure at the time of the procedure; Y73.3 Surgical instruments, materials and gastroenterology and urology devices (including sutures) associated with adverse incidents
CPT/HCPCS: 36415; 71045; 74177; 74250; 81001; 82040; 82150; 82247; 82310; 82374; 82435; 82565; 82947; 83690; 84075; 84132; 84155; 84295; 84450; 84460; 84520; 84703; 85025; 86677; C9113; J0131; J1650; J2270; J2405; J2765; J3010; J3490; J7030; Q9967